=== PATIENT | male | born 1990 | race African-American/Black ===

== ENCOUNTER 2018-06-27 19:24 | Emergency (ER) | payer OTHER ==
[2018-06-27 19:35] VITALS: BP 146/86
--- NOTE | 2018-06-27 20:24 | ER Document Report ---
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 He stated that he had minor swelling on the back of his left hand approximately posterior to thenar eminence. Patient has numbness in this area as well but has full flexion of extension of ab and abduction. No known medical problems does not take medications a daily basis recently moved to the area does not have a primary care physician TRAVEL OUTSIDE OF THE [place] IN LAST 30 DAYS: No Past Medical History - Social History Smoking Status: Unknown if Ever Smoked Family History: Reviewed & Not Pertinent Review of Systems - Review of Systems Constitutional: No symptoms reported EENT: No symptoms reported Cardiovascular: No symptoms reported Respiratory: No symptoms reported Gastrointestinal: No symptoms reported Genitourinary: No symptoms reported Male Genitourinary: No symptoms reported Musculoskeletal: See HPI Skin: No symptoms reported Hematologic/Lymphatic: No symptoms reported Neurological/Psychological: No symptoms reported Physical Exam - Vital signs Vitals: Temp Pulse Resp BP Pulse Ox 98.4 F 68 18 146/86 H 98 06/27/18 19:33 06/27/18 19:33 06/27/18 19:33 06/27/18 19:33 06/27/18 19:33 - Cardiovascular Rhythm: Regular Heart sounds: Normal auscultation Murmur: No - Extremities General upper extremity: Other - Dorsal aspect of left hand has small papule that is directly inferior to thenar eminence region and also has small discoloration over dorsal aspect over the left wrist. No bogginess no skin discoloration elsewhere full flexion and extension ab and abduction of thumb but pain with doing so. No signs of compartment syndrome. Course - Re-evaluation Re-evalutation: 06/27/18 20:[address] Jimenez who will see patient for evaluation in the morning tomorrow. No signs of compartment syndrome no signs of tendon involvement at this time Dr. Jimenez said he may consider MRI depending on exam. Patient is right-hand dominant - Vital Signs Vital signs: Temp Pulse Resp BP Pulse Ox 98.4 F 68 18 146/86 H 98 06/27/18 19:33 06/27/18 19:33 06/27/18 19:33 06/27/18 19:33 06/27/18 19:33 - EKG Interpretation by Me EKG shows normal: Sinus rhythm Rate: Normal Rhythm: NSR - normal axis Discharge - Discharge Condition: Good Disposition: HOME, SELF-CARE Instructions: Electrical Injury ([facility]) Prescriptions: Naproxen 500 mg PO BID #20 tablet Referrals: MELVINA JIMENEZ MD [ACTIVE STAFF] - Follow up tomorrow
[2018-06-27] MEDS ORDERED: KETOROLAC TROMETHAMINE 60 MG/2 ML SDV IM ONE (20:33)
--- NOTE | 2018-06-27 21:27 | EKG REPORT ---
SEVERITY:- NORMAL ECG - SINUS RHYTHM : Confirmed by: Kassandra Escobar MD 27-Jun-2018 21:26:40
== END 2018-06-27 20:58 | disposition home or self-care (01) ==
LOC: ER 19:24
DX: T75.4XXA Electrocution, initial encounter (principal); M79.89 Other specified soft tissue disorders; R20.0 Anesthesia of skin; W86.8XXA Exposure to other electric current, initial encounter; Y93.89 Activity, other specified; Y92.129 Unspecified place in nursing home as the place of occurrence of the external cause; Y99.0 Civilian activity done for income or pay
CPT/HCPCS: 93005; 99284; 96372; 93010; J1885

== ENCOUNTER 2020-01-03 14:49 | Emergency (ER) | payer OTHER ==
[2020-01-03 15:00] VITALS: BP 165/95
--- NOTE | 2020-01-03 15:09 | ER Document Report ---
HPI - HPI Time Seen by Provider: 01/03/20 15:07 Notes: Patient is a 29-year-old male no significant past medical history presents complaint of right ear pain that began last night. Patient does use Q-tips. He has been otherwise able to eat and drink without difficulty. He is urinating normally and having normal bowel movements. Denies drug allergies. No other concerns or complaints. No recent illness. Denies any headache, fever, neck pain, changes in vision/speech/mentation/hearing, URI, sore throat, chest pain, palpitations, syncope, cough, shortness of breath, wheeze, dyspnea, abdominal pain, nausea/vomiting/diarrhea, urinary retention, dysuria, hematuria, tinnitus, dizziness, or rash. - ROS Systems Reviewed and Negative: Yes All other systems reviewed and negative Past Medical History - Social History Smoking Status: Current Every Day Smoker Family History: Reviewed & Not Pertinent Renal/ Medical History: Denies: Hx Peritoneal Dialysis Vertical Provider Document - CONSTITUTIONAL Agree With Documented VS: Yes Notes: PHYSICAL EXAMINATION: GENERAL: Well-appearing, well-nourished and in no acute distress. A&Ox4. Answers questions appropriately. Moves comfortably w/o notable distress HEAD: Atraumatic, normocephalic. EYES: Pupils equal round and reactive to light, extraocular movements intact, sclera anicteric, conjunctiva are normal. ENT: Rt EAC tender, scant discharge w/o significant swelling/occlusion. Lt EAC wnl. + Tenderness to tragus rt. No mastoid tenderness bilaterally. TM's intact b/l without erythema, fluid, or perforation. Nares patent and without discharge. oropharynx no erythema without exudates. No tonsilar hypertrophy without erythema or exudate. No palatine shift. Uvula midline. No tongue protrusion. No drooling, hoarseness, or airway compromise. Moist mucous membranes. No sinus tenderness. NECK: Normal range of motion, supple without lymphadenopathy. No rigidity/meningismus. LUNGS: Breath sounds clear to auscultation bilaterally and equal. No wheezes rales or rhonchi. No retractions HEART: Regular rate and rhythm without murmurs, rubs, gallops. NEUROLOGICAL: Normal speech, normal gait. PSYCH: Normal mood, normal affect. SKIN: Warm, Dry, normal turgor, no rashes or lesions noted. - INFECTION CONTROL TRAVEL OUTSIDE OF THE [place] IN LAST 30 DAYS: No Course - Re-evaluation Re-evalutation: 01/03/20 15:13 Patient is an afebrile, well-hydrated, 29-year-old male who presents with acute otitis externa of the right ear. Vitals are acceptable without significant tachycardia, tachypnea, or hypoxia. PE is otherwise unremarkable. Patient is nontoxic-appearing and is tolerating p.o. without difficulty. No ear wick warranted at this time. No further work-up warranted. Low suspicion for any sepsis, meningitis, severe dehydration, respiratory compromise, mastoiditis, or other systemic emergent condition at this time. Patient is aware that condition can change from initial presentation and he needs to monitor symptoms closely and seek medical attention with any acute changes. Rx for ciprodex. Recheck with your PCM in 3 to 5 days. Consider consult with ENT. Return to the ED with any other worsening/concerning symptoms. Patient is in agreement. - Vital Signs Vital signs: Temp Pulse Resp BP Pulse Ox 98.5 F 69 18 165/95 H 99 01/03/20 14:59 01/03/20 14:59 01/03/20 14:59 01/03/20 14:59 01/03/20 14:59 Discharge - Discharge Clinical Impression: Right ear pain Acute otitis externa of right ear Qualifiers: Otitis externa type: unspecified type Qualified Code(s): H60.501 - Unspecified acute noninfective otitis externa, right ear Condition: Stable Disposition: HOME, SELF-CARE Instructions: Otitis Externa ([facility]) Additional Instructions: Maintain adequate fluid intake Take meds as directed tylenol/ibuprofen as needed Avoid Q-tips in the ears over the counter cold medication as needed for symptoms F/u: with your PCM in 3-5 days for a recheck Consider consult with ENT Return to the ED with any fever, dizziness, tinnitus, headaches, worsening pain, chest pain, palpitations, syncope, neck pain/stiffness, shortness of breath, wheezing, drooling, trouble swallowing/breathing, abdominal pain, n/v/d, rash, or worsening/concerning symptoms otherwise. Prescriptions: Ciprofloxacin HCl/Dexameth [Ciprodex Otic Suspension 7.5 ml Bottle] 4 drop OT BID #1 bottle Forms: Elevated Blood Pressure, Smoking Cessation Education Referrals: LISETH DURHAM DO [ASSOCIATE] - Follow up as needed
== END 2020-01-03 15:09 | disposition home or self-care (01) ==
LOC: ER 14:49
DX: H60.501 Unspecified acute noninfective otitis externa, right ear (principal); H92.01 Otalgia, right ear; F17.200 Nicotine dependence, unspecified, uncomplicated
CPT/HCPCS: 99282

== ENCOUNTER 2020-01-15 05:23 | Emergency (ER) | payer OTHER ==
[2020-01-15] MEDS ORDERED: ACETAMINOPHEN 325 MG TABLET PO ONE (05:40)
[2020-01-15] MEDS ORDERED: OXYCODONE-ACETAMINOPHEN 5-325 MG TABLET PO ONE ×2 (06:52→11:11)
--- NOTE | 2020-01-15 06:57 | ER Document Report ---
ED General - General Chief Complaint: Headache, Worst Ever Stated Complaint: HEADACHE,FACIAL PAIN Time Seen by Provider: 01/15/20 06:27 Primary Care Provider: [facility] [Provider Group] - Follow up as needed Mode of Arrival: Ambulatory Information source: Patient TRAVEL OUTSIDE OF THE [place] IN LAST 30 DAYS: No - HPI Notes: Patient states that last night he started to have a severe headache on the right side of his head. States it started suddenly. States he goes from the right judaism to the right ear. He denies any sinus congestion cough or cold. No rashes. No trauma. He states that his vision has been slightly blurry. No trouble swallowing or speaking. He states he has had no nausea or vomiting. He states the pain is severe and throbbing. Is located only on the right side of his head and radiates from the top to the ear. It is constant. Nothing makes it better or worse. - Related Data Allergies/Adverse Reactions: No Known Allergies Allergy (Verified 01/03/20 15:06) Past Medical History - General Information source: Patient - Social History Smoking Status: Current Every Day Smoker Chew tobacco use (# tins/day): No Frequency of alcohol use: None Drug Abuse: None Family History: Reviewed & Not Pertinent Patient has suicidal ideation: No Patient has homicidal ideation: No Renal/ Medical History: Denies: Hx Peritoneal Dialysis Review of Systems - Review of Systems Constitutional: denies: Chills, Fever Cardiovascular: denies: Chest pain, Palpitations Respiratory: denies: Cough, Short of breath -: Yes All other systems reviewed and negative Physical Exam - Vital signs Vitals: Temp Pulse Resp BP Pulse Ox 97.9 F 64 16 151/94 H 100 01/15/20 10:58 01/15/20 10:58 01/15/20 10:58 01/15/20 10:58 01/15/20 10:58 Interpretation: Normal - General General appearance: Appears well, Alert - HEENT Head: Normocephalic, Atraumatic Eyes: Normal Pupils: PERRL Ears: Normal External canal: Normal Tympanic membrane: Normal Mouth/Lips: Normal Mucous membranes: Moist - Respiratory Respiratory status: No respiratory distress Chest status: Nontender Breath sounds: Normal Chest palpation: Normal - Cardiovascular Rhythm: Regular Heart sounds: Normal auscultation Murmur: No - Abdominal Inspection: Normal Distension: No distension Bowel sounds: Normal Tenderness: Nontender Organomegaly: No organomegaly - Back Back: Normal, Nontender - Extremities General upper extremity: Normal inspection, Nontender, Normal color, Normal ROM, Normal temperature General lower extremity: Normal inspection, Nontender, Normal color, Normal ROM, Normal temperature, Normal weight bearing. 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 No: Pronator drift Sensory: Normal - Psychological Associated symptoms: Normal affect, Normal mood - Skin Skin Temperature: Warm Skin Moisture: Dry Skin Color: Normal Course - Re-evaluation Re-evalutation: 01/15/20 14:42 Patient presented with a right-sided headache that he states was worst of his life. CAT scan was unremarkable. Patient had an LP which had a tap consistent with a traumatic tap not with a hemorrhage. Patient also had a CTA which showed no evidence of any vascular irregularities. Patient has a normal neurological exam. - Vital Signs Vital signs: Temp Pulse Resp BP Pulse Ox 98.5 F 60 14 126/73 H 100 01/15/20 12:39 01/15/20 12:39 01/15/20 12:39 01/15/20 12:39 01/15/20 12:39 - Laboratory Result Diagrams: 01/15/20 08:05 01/15/20 08:05 Laboratory results interpreted by me: 01/15/20 01/15/20 10:00 10:00 CSF WBC 17 H CSF RBC 5300 H 74530 H - Diagnostic Test Radiology reviewed: Image reviewed, Reports reviewed Procedures - Lumbar Puncture Lumbar puncture Time completed: 10:01 Consent obtained: Yes Lumbar puncture pre-procedure: Sterile PPE donned, Betadine prep applied, Sterile drapes applied Patient position: Lying Needle size: 21 Lumbar puncture location: l3-l4 Anesthetic type: 1% Lidocaine mL's of anesthetic: 5 Amount/type of drainage: 5cc's Number of attempts: 1 Complications: Yes - bloody tap Discharge - Discharge Clinical Impression: Headache Qualifiers: Headache type: unspecified Headache chronicity pattern: acute headache Intractability: intractable Qualified Code(s): R51 - Headache Condition: Stable Disposition: HOME, SELF-CARE Instructions: Headache ([facility]), Post Lumbar Puncture ([facility]) Additional Instructions: Please call [facility] as soon as possible to arrange follow-up Prescriptions: Hydrocodone/Acetaminophen [Edison 5-325 mg Tablet] 1 tab PO Q6 PRN 3 Days #12 tablet PRN Reason: Forms: Return to Work Referrals: [facility] [Provider Group] - Follow up as needed
--- NOTE | 2020-01-15 07:51 | RADIOLOGY REPORT (SQ) ---
EXAM DESCRIPTION: CT HEAD WITHOUT IV CONTRAST COMPLETED DATE/TME: 01/15/2020 06:52 CLINICAL HISTORY: 29 years, Male, right sided headache COMPARISON: None. TECHNIQUE: Axial CT images of the brain were obtained without contrast. Sagittal and coronal reformats were performed. [facility] 1043 Images stored on PACS. All CT scanners at this facility use dose modulation, iterative reconstruction, and/or weight based dosing when appropriate to reduce radiation dose to as low as reasonably achievable ([facility]). [facility]: Dose Right [facility]: CareDose [facility]: Dose Right [facility]: Teradose 4D [facility]: [employer] LIMITATIONS: None. FINDINGS: There is no acute cortical infarct, hemorrhage, mass, edema, hydrocephalus, or extra-axial fluid collection. The mccollum-white matter differentiation is preserved. A mucus retention cyst is in the left maxillary sinus. There is mucosal thickening of the right maxillary sinus. The mastoid air cells are clear. There is no acute fracture. IMPRESSION: No acute intracranial abnormality TECHNICAL DOCUMENTATION: Quality ID # 436: Final reports with documentation of one or more dose reduction techniques (e.g., Automated exposure control, adjustment of the mA and/or kV according to patient size, use of iterative reconstruction technique) copyright 2011 [employer]- All Rights Reserved
[2020-01-15 08:20] LABS: ABSOLUTE BASOPHILS # (AUTO) 0.1 10^3/uL (0.0-0.2); ABSOLUTE LYMPHOCYTES (AUTO) 1.5 10^3/uL (0.5-4.7); ABSOLUTE MONOCYTES (AUTO) 0.4 10^3/uL (0.1-1.4); ABSOLUTE NEUT (AUTO) 5.6 10^3/uL (1.7-8.2); BASOPHILS % (AUTO) 0.8 % (0-2); EOSINOPHILS % (AUTO) 0.2 % (0-6); LYMPHOCYTES % (AUTO) 20.4 % (13-45); MEAN CORPUSCULAR HEMOGLOBIN 28.3 pg (27.0-33.4); MEAN CORPUSCULAR HGB CONC 34.9 g/dL (32.0-36.0); MEAN CORPUSCULAR VOLUME 81 fl (80-97); MONOCYTES % (AUTO) 4.8 % (3-13); PLATELET COUNT 167 10^3/uL (150-450); RED BLOOD COUNT 5.31 10^6/uL (4.35-5.55); RED CELL DISTRIBUTION WIDTH 13.4 % (11.5-14.0); SEGMENTED NEUTROPHILS % (AUTO) 73.8 % (42-78); TOTAL CELLS COUNTED % (AUTO) 100 %; WHITE BLOOD COUNT 7.6 10^3/uL (4.0-10.5)
[2020-01-15] MEDS ORDERED: LIDOCAINE 1% INJ-PF (10 MG/ML) 30 ML SDV INJ ONE (08:28)
[2020-01-15 08:38] LABS: ALBUMIN 3.7 g/dL (3.5-5.0); ALKALINE PHOSPHATASE 59 U/L (38-126); ANION GAP 8 (5-19); ASPARTATE AMINO TRANSFERASE 25 U/L (17-59); BILIRUBIN,DIRECT 0.2 mg/dL (0.0-0.4); BILIRUBIN,TOTAL 0.3 mg/dL (0.2-1.3); BLOOD UREA NITROGEN 11 mg/dL (7-20); CALCIUM 9.3 mg/dL (8.4-10.2); CARBON DIOXIDE 27 mmol/L (22-30); CHLORIDE 105 mmol/L (98-107); GLUCOSE 110 mg/dL (75-110); POTASSIUM 4.1 mmol/L (3.6-5.0); TOTAL PROTEIN 6.4 g/dL (6.3-8.2)
[2020-01-15 11:01] LABS: GLUCOSE,CSF 67 mg/dL (40-70); PROTEIN,CSF 50 mg/dL (12-60)
[2020-01-15 11:27] LABS: APPEARANCE ALL TUBES CLOUDY; COLOR TUBE 1 PINK; COLOR TUBE 2 PINK; COLOR TUBE 3 PINK; COLOR TUBE 4 RED; CSF TUBE NUMBER 1
[2020-01-15 11:30] LABS: RED BLOOD CELL,CSF 5300 /uL (0-10)
[2020-01-15 11:31] LABS: WHITE BLOOD CELL,CSF 2 /uL (0-5)
[2020-01-15 12:06] LABS: COLOR TUBE 1 PINK; COLOR TUBE 2 PINK; COLOR TUBE 3 PINK; COLOR TUBE 4 RED; CSF TUBE NUMBER 4
[2020-01-15 12:07] LABS: APPEARANCE ALL TUBES CLOUDY
[2020-01-15 12:08] LABS: WHITE BLOOD CELL,CSF 17 /uL (0-5)
[2020-01-15 12:36] LABS: MONONUCLEAR CELLS CSF 17 %; POLYMORPHONUCLEAR CELLS CSF 83 %
[2020-01-15 12:42] LABS: RED BLOOD CELL,CSF 49388 /uL (0-10)
--- NOTE | 2020-01-15 14:48 | RADIOLOGY REPORT (SQ) ---
EXAM DESCRIPTION: CTA NECK COMPLETED DATE/TIME: 01/15/2020 2:14 pm REASON FOR STUDY: right sided headache COMPARISON: None. TECHNIQUE: Axial dynamic scanning technique with dynamic contrast enhancement through the extra-cracking unit operator nial carotid and vertebral arteries. Multiplanar reconstruction. 3-D MIPS and Volume-rendered imag es acquired at the workstation and saved to PACS. Images are reviewed in soft tissue, bone, lung w indows. All CT scanners at this facility use dose modulation, iterative reconstruction, and/or weight based d osing when appropriate to reduce radiation dose to as low as reasonably achievable ([facility]). [facility]: Dose Right [facility]: CareDose [facility]: Dose Right [facility]: Teradose 4D [facility]: [employer] CONTRAST TYPE AND DOSE: 75 mL Omnipaque 350 RENAL FUNCTION: BUN 11, creatinine 0.79 LIMITATIONS: None. FINDINGS: AORTIC ARCH: Normal three-vessel origin. Bilateral subclavian arteries are patent. No d issection. RIGHT CAROTIDS: Patent common, internal and external carotid arteries without suggestion of significa nt stenosis or irregular plaque. No dissection. RIGHT VERTEBRAL: Patent. No dissection. LEFT CAROTIDS: Patent common, internal and external carotid arteries without suggestion of significan t stenosis or irregular plaque. No dissection. LEFT VERTEBRAL: Patent. No dissection. OTHER: No other significant finding. OTHER: 3-D reconstructions confirm findings. IMPRESSION: NORMAL CTA OF THE EXTRA-CRANIAL CAROTID AND VERTEBRAL ARTERIES. COMMENT: Quality ID #[id number]: Measurements of distal internal carotid diameter were used as the denomina tor for stenosis measurement. TECHNICAL DOCUMENTATION: JOB ID: [id number] Quality ID # 436: Final reports with documentation of one or more dose reduction techniques (e.g., Au tomated exposure control, adjustment of the mA and/or kV according to patient size, use of iterative reconstruction technique) 2010 [employer]- All Rights Reserved Reading location - IP/workstation name: [email or web address]
--- NOTE | 2020-01-15 14:49 | RADIOLOGY REPORT (SQ) ---
EXAM DESCRIPTION: CTA HEAD COMPLETED DATE/TIME: 01/15/2020 2:13 pm REASON FOR STUDY: right sided headache COMPARISON: None. TECHNIQUE: Post IV contrast scanning, thin section axial imaging through the brain to evaluate the a rterial structures. Source and MIP images are saved and reviewed on PACS. Advanced 3D imaging as volume-rendering, MIPs, SSD performed? yes All CT scanners at this facility use dose modulation, iterative reconstruction, and/or weight based d osing when appropriate to reduce radiation dose to as low as reasonably achievable (ALARA). [facility]: Dose Right [facility]: CareDose [facility]: Dose Right [facility]: Teradose 4D [facility]: [employer] CONTRAST TYPE AND DOSE: 75 mL Omnipaque 350 RENAL FUNCTION: BUN 11, creatinine 0.79 LIMITATIONS: None. FINDINGS: [place]: The anterior, middle, posterior cerebral arteries are all patent. No ev idence of aneurysm or focal stenosis. POSTERIOR CIRCULATION: The distal vertebral arteries are patent as is the basilar artery. No aneurysm . BRAIN: No gross enhancing lesions as visualized. The superior cerebral hemispheres are not included in the field of view. BONES: Intact as visualized. SINUSES: No fluid or mucosal thickening. OTHER: No other significant finding. IMPRESSION: NO CTA EVIDENCE OF STENOSIS OR ANEURYSM OF THE [place]. TECHNICAL DOCUMENTATION: JOB ID: [id number] Quality ID # 436: Final reports with documentation of one or more dose reduction techniques (e.g., Au tomated exposure control, adjustment of the mA and/or kV according to patient size, use of iterative reconstruction technique) 2010 [employer]- All Rights Reserved Reading location - IP/workstation name: [email or web address]
[2020-01-15 15:12] VITALS: BP 126/80
== END 2020-01-15 15:11 | disposition home or self-care (01) ==
LOC: ER 05:23
PROC: 00JU3ZZ Inspection of Spinal Canal, Percutaneous Approach (ICD-10-PCS; principal; 2020-01-15)
DX: R51 Headache (principal); H53.8 Other visual disturbances; F17.200 Nicotine dependence, unspecified, uncomplicated
CPT/HCPCS: 36415; 70450; 70496; 70498; 80053; 82945; 84157; 85025; 87070; 87205; 89050; 99284

== ENCOUNTER 2020-01-19 22:10 | Emergency (ER) | payer OTHER ==
[2020-01-20] MEDS ORDERED: METOCLOPRAMIDE HCL INJ/PF 10 MG/2 ML SDV IV ONE (02:18)
[2020-01-20] MEDS ORDERED: KETOROLAC TROMETHAMINE INJ/PF 30 MG/1 ML SDV IV ONE (02:18)
[2020-01-20] MEDS ORDERED: DIPHENHYDRAMINE HCL 50 MG/ML VIAL IV ONE (02:19)
--- NOTE | 2020-01-20 02:26 | ER Document Report ---
ED General - General Chief Complaint: Headache Stated Complaint: HEADACHE Time Seen by Provider: 01/20/20 02:08 TRAVEL OUTSIDE OF THE [place] IN LAST 30 DAYS: No - HPI Notes: Patient is a 29-year-old male who presents the emergency department for evaluation of a headache. He was actually seen here earlier in the week for sudden onset right-sided headache on Monday. He was seen by another ED provider, had CT of the head, CTA of the head and neck, lumbar puncture performed. These were all found to be unremarkable. He states his pain is still present. He was sent home with Vicodin which he states helps for a short amount of time that his pain comes right back. He does state that at times light makes his pain worse, nothing seems to make it significantly better. He currently rates his pain at a 9 out of 10. No fevers or chills. No visual changes. He is speaking and swallowing without difficulty. No sore throats. No rashes. - Related Data Allergies/Adverse Reactions: No Known Allergies Allergy (Verified 01/03/20 15:06) Home Medications: hydrocodone for headaches Past Medical History - General Information source: Patient - Social History Smoking Status: Current Every Day Smoker Family History: Reviewed & Not Pertinent Patient has suicidal ideation: No Patient has homicidal ideation: No Renal/ Medical History: Denies: Hx Peritoneal Dialysis Review of Systems - Review of Systems Neurological/Psychological: See HPI -: Yes All other systems reviewed and negative Physical Exam - Vital signs Vitals: Temp Pulse Resp BP Pulse Ox 98.2 F 66 16 145/82 H 99 01/19/20 22:37 01/19/20 22:37 01/19/20 22:37 01/19/20 22:37 01/19/20 22:37 - Notes Notes: Vital signs reviewed, please refer to chart. Head is normocephalic, atraumatic. Pupils equal round, reactive to light. Oral mucosa is moist. Uvula is midline. Neck is supple without meningismus. He does have some tenderness at the base of the occiput on the right with associated spasm. Heart is regular rate and rhythm. Lungs are clear to auscultation bilaterally. Abdomen is soft, nontender, normoactive bowel sounds throughout. Extremities without cyanosis, clubbing. Posterior calves are nontender. Peripheral pulses are equal. Skin is warm and dry. Patient is awake, alert, oriented x3. Cranial nerves II - XII are grossly intact without focal neurological deficits. Strength is plus 5 out of 5 bilateral upper and lower extremities. Sensation is intact. Reflexes symmetrical. Intact [id number], rapid alternating movements, [id number]. Course - Re-evaluation Re-evalutation: 01/20/20 02:23 Patient presents to the emergency department for evaluation. He had a very thorough evaluation and work-up when he was here a few days ago. His pain is been coming and going. He has no nuchal rigidity, no other signs of a spinal headache or other more significant cause. Again treat the patient with a migraine cocktail and have him follow-up with [place] [facility]. He is to return to the ED with worsening or new concerning symptoms of any sort. - Vital Signs Vital signs: Temp Pulse Resp BP Pulse Ox 98.2 F 66 16 145/82 H 99 01/19/20 22:37 01/19/20 22:37 01/19/20 22:37 01/19/20 22:37 01/19/20 22:37 Discharge - Discharge Clinical Impression: Headache Qualifiers: Headache chronicity pattern: acute headache Condition: Stable Disposition: HOME, SELF-CARE Instructions: Toradol Injection ([facility]), Headache ([facility]) Additional Instructions: Rest, stay well-hydrated. Follow-up with [place] [facility] this week. Return to the emergency department with worsening or new concerning symptoms of any sort.
[2020-01-20] MEDS ORDERED: NORMAL SALINE 500 ML IV ONE (02:28)
[2020-01-20 03:23] VITALS: BP 132/77
== END 2020-01-20 03:23 | disposition home or self-care (01) ==
LOC: ER 22:10
DX: R51 Headache (principal); F17.200 Nicotine dependence, unspecified, uncomplicated
CPT/HCPCS: 99283; 96361; 96374; 96375; J1200; J1885; J2765; J7040